=== PATIENT | female | born 1975 | race Caucasian/White ===

== ENCOUNTER 2017-01-01 22:59 | Emergency (ER) | payer OTHER ==
[~2017-01-01 22:59] MED LIST: ENSURE PLUS237 ML PO; GLEEVEC400 MG PO; KEPPRA500 MG PO; KLONOPIN TAB 00.5 MG PO; THERAGRAN M TAB1 EA PO; TOPAMAX100 MG PO; TYLENOL325 MG PO; VIMPAT200 MG PO
[2017-01-02 04:45] LABS: HEMOGLOBIN 11.7 gm/dl (12.3-15.3); RED BLOOD COUNT 3.33 M/UL (4.00-5.10); WHITE BLOOD COUNT 4.8 K/UL (4.5-11.0)
[2017-01-02 05:08] LABS: BUN/CREATININE RATIO 15 (0-10)
== END 2017-01-02 07:45 | disposition home or self-care (01) ==
LOC: ER1 22:59
PROVIDERS: Physician Assistant
DX: R10.9 Unspecified abdominal pain (principal); C92.10 Chronic myeloid leukemia, BCR/ABL-positive, not having achieved remission; G40.909 Epilepsy, unspecified, not intractable, without status epilepticus; F17.210 Nicotine dependence, cigarettes, uncomplicated; Z90.49 Acquired absence of other specified parts of digestive tract; Z79.899 Other long term (current) drug therapy
CPT/HCPCS: 36415; 71010; 80053; 81001; 82150; 83605; 83690; 84703; 85025; 87077; 87086; 87186; 87210; 93005; 96374; 96375; 96376; 99284; J2270; J2405; J7030; J7050; Q9962

== ENCOUNTER 2017-01-26 21:37 | Emergency (ER) | payer OTHER ==
[2017-01-26 22:30] LABS: HEMOGLOBIN 11.3 gm/dl (12.3-15.3); RED BLOOD COUNT 3.24 M/UL (4.00-5.10); WHITE BLOOD COUNT 4.1 K/UL (4.5-11.0)
[2017-01-26 23:02] LABS: BUN/CREATININE RATIO 13 (0-10)
== END 2017-01-27 00:20 | disposition home or self-care (01) ==
LOC: ER1 21:37
PROVIDERS: Emergency Medicine
DX: G40.909 Epilepsy, unspecified, not intractable, without status epilepticus (principal); Z88.5 Allergy status to narcotic agent; Z79.899 Other long term (current) drug therapy
CPT/HCPCS: 36415; 80053; 83690; 84703; 85025; 85610; 85730; 93005; 96374; 96375; 99285; J1200; J2405; J2765; J7030

== ENCOUNTER 2017-01-29 22:10 | Emergency (ER) | payer OTHER ==
[2017-01-29 23:39] LABS: HEMOGLOBIN 11.7 gm/dl (12.3-15.3); RED BLOOD COUNT 3.29 M/UL (4.00-5.10)
[2017-01-29 23:55] LABS: BUN/CREATININE RATIO 10 (0-10)
== END 2017-01-30 00:45 | disposition home or self-care (01) ==
LOC: ER1 22:10
PROVIDERS: Physician Assistant
DX: G40.909 Epilepsy, unspecified, not intractable, without status epilepticus (principal); R51 Headache; R11.0 Nausea; F17.200 Nicotine dependence, unspecified, uncomplicated; Z91.14 Patient's other noncompliance with medication regimen
CPT/HCPCS: 36415; 80053; 80307; 81001; 84703; 85025; 87077; 87086; 87186; 96372; 99284; J0696

== ENCOUNTER 2017-02-09 17:01 | Emergency (ER) | payer OTHER ==
[2017-02-09 20:58] LABS: HEMOGLOBIN 12.3 gm/dl (12.3-15.3); RED BLOOD COUNT 3.54 M/UL (4.00-5.10); WHITE BLOOD COUNT 6.1 K/UL (4.5-11.0)
[2017-02-09 21:16] LABS: BUN/CREATININE RATIO 16 (0-10)
== END 2017-02-10 01:55 | disposition home or self-care (01) ==
LOC: ER1 17:01
PROVIDERS: Physician Assistant
DX: N39.0 Urinary tract infection, site not specified (principal); C95.90 Leukemia, unspecified not having achieved remission; G40.909 Epilepsy, unspecified, not intractable, without status epilepticus; Z90.49 Acquired absence of other specified parts of digestive tract; Z79.899 Other long term (current) drug therapy
CPT/HCPCS: 36415; 80053; 81001; 83605; 83690; 85025; 87040; 87086; 96361; 96374; 96375; 99284; J2270; J2405; J7030